=== PATIENT | male | born 1960 | race Caucasian/White ===

== ENCOUNTER → 2016-04-28 | Emergency (ER) | payer MEDICARE ==
--- NOTE | 2016-04-28 11:52 | ERRECORD ---
*[facility] EMERGENCY RECORD KNOWN ALLERGIES No recorded allergies CURRENT MEDICATIONS No recorded medications PROBLEM LIST No recorded problems DIAGNOSIS (11:45 KRLA) FINAL: PRIMARY: enterred in error. PRESCRIPTION No recorded prescriptions DISPOSITION (11:45 KRLA) PATIENT: Disposition Type: Entered in Error, Disposition: zEntered in Error, Patient left the department. Barrett: KRLA=CAROLYN Maurer, Lis &a-1R&a+25V*p+0X*[id number]*c202B*c15G*c2P*p-0X&a-25V&a+1R Name: Johnny Gutiérrez : 1960 M56 MedRec: [id number] AcctNum: [id number] Prepared: SunApr 28, 2016 11:50 by Interface Page 1 of 1 [facility]
--- NOTE | 2016-04-28 11:58 | PICIS ---
*[facility] EMERGENCY RECORD TRIAGE (11:44 KRLA) PATIENT: NAME: Johnny Gutiérrez, AGE: 56, GENDER: male, : Sun1960, TIME OF GREET: SunApr 28, 2016 09:53, PREFERRED LANGUAGE: Mongolian, RACE: WHITE, ETHNICITY: Not or , SSN: [id number], Zip Code: [facility], PHONE: , , , PERSON ID: [id number]. TRIAGE NOTES: entered in error. COMPLAINT: entered in error. ADMISSION: ADMISSION SOURCE: Home, TRANSPORT: Walk-in, BED: TRIAGE. PROVIDERS: TRIAGE NURSE: Lis Maurer RN. KNOWN ALLERGIES No recorded allergies CURRENT MEDICATIONS No recorded medications EVENTS TRANSFER: Triage to Emergency Triage. (SunApr 28, 2016 11:44 KRLA) Removed from Emergency Triage. (11:45 KRLA) PROBLEM LIST No recorded problems DIAGNOSIS (11:45 KRLA) FINAL: PRIMARY: enterred in error. DISPOSITION (11:45 KRLA) PATIENT: Disposition Type: Entered in Error, Disposition: zEntered in Error, Patient left the department. PRESCRIPTION No recorded prescriptions Barrett: ALTAGRACIA=CAROLYN Maurer, Lis &a-1R&a+25V*p+0X*[id number]*c202B*c15G*c2P*p-0X&a-25V&a+1R Name: Johnny Gutiérrez : 1960 M56 MedRec: [id number] AcctNum: [id number] Prepared: SunApr 28, 2016 11:56 by Interface Page 1 of 1 [facility]
== END ==
LOC: MADER/OP 09:52
DX: Z53.21 Procedure and treatment not carried out due to patient leaving prior to being seen by health care provider (principal)
CPT/HCPCS: 96372; G0463; 99201

== ENCOUNTER 2018-09-13 08:38 | Outpatient (CLI) | payer MEDICARE | END 2018-09-13 08:39 | disposition home or self-care (01) | LOC: MADER/OP 08:38 | PROVIDERS: ATTEND Psychiatry & Neurology Psychiatry | DX: F25.9 Schizoaffective disorder, unspecified (principal) | CPT/HCPCS: 96372 ==

== ENCOUNTER → 2019-04-29 | Day surgery (SDC) | payer MEDICARE | LOC: MADER/OP 13:22 | PROVIDERS: ATTEND Psychiatry & Neurology Psychiatry | DX: F25.9 Schizoaffective disorder, unspecified (principal) | CPT/HCPCS: 90853; 96372 ==

== ENCOUNTER 2019-05-19 13:23 | Emergency (ER) | payer MEDICARE ==
[2019-05-19] MEDS ORDERED: predniSONE 20 MG TAB ONE (15:56)
== END 2019-05-19 15:55 | disposition home or self-care (01) ==
LOC: MADERS 13:23
DX: M54.16 Radiculopathy, lumbar region (principal); M19.90 Unspecified osteoarthritis, unspecified site; F20.9 Schizophrenia, unspecified; Z79.899 Other long term (current) drug therapy
CPT/HCPCS: 99283; J7512

== ENCOUNTER 2019-05-23 09:19 | Emergency (ER) | payer MEDICARE ==
[2019-05-23] MEDS ORDERED: Diazepam 5 MG TAB ONE (09:49)
[2019-05-23] MEDS ORDERED: Cyclobenzaprine 10 MG TAB ONE (09:49)
== END 2019-05-23 10:22 | disposition home or self-care (01) ==
LOC: MADERS 09:19
DX: M54.42 Lumbago with sciatica, left side (principal); M19.90 Unspecified osteoarthritis, unspecified site; F20.9 Schizophrenia, unspecified; Z79.899 Other long term (current) drug therapy
CPT/HCPCS: 99283

== ENCOUNTER → 2019-08-14 | Day surgery (SDC) | payer MEDICARE | LOC: MADER/OP 16:29 | PROVIDERS: ATTEND Psychiatry & Neurology Psychiatry | DX: F25.9 Schizoaffective disorder, unspecified (principal) | CPT/HCPCS: 96372 ==

== ENCOUNTER 2021-04-24 02:58 | Emergency (ER) | payer MEDICARE ==
[2021-04-24] MEDS ORDERED: Lorazepam 1 MG TAB ONE (03:22)
== END 2021-04-24 03:49 | disposition home or self-care (01) ==
LOC: MADERS 02:58
DX: F41.9 Anxiety disorder, unspecified (principal); F13.239 Sedative, hypnotic or anxiolytic dependence with withdrawal, unspecified; R06.02 Shortness of breath; M19.90 Unspecified osteoarthritis, unspecified site; F17.210 Nicotine dependence, cigarettes, uncomplicated
CPT/HCPCS: 93005; 94760

== ENCOUNTER 2021-07-02 01:19 | Emergency (ER) | payer MEDICARE ==
[2021-07-02] MEDS ORDERED: Iopamidol 370 76% 100 ML VIAL FS ONE (01:20)
[2021-07-02] MEDS ORDERED: Sodium Chloride 0.9% 1,000 ML ONE (02:07)
[2021-07-02] MEDS ORDERED: Ondansetron PF 4 MG/2 ML Vial ONE (02:07)
[2021-07-02] MEDS ORDERED: Pantoprazole 40 MG VIAL ONE (02:07)
[2021-07-02 02:16] LABS: #Basophils 0.4 thou/uL (0.0-0.2); #Eosinphils 0.4 thou/uL (0.0-0.7); #Lymphocytes 2.7 thou/uL (1.20-3.40); #Monocytes 0.9 thou/uL (0.11-0.59); #Neutrophils 11.5 thou/uL (1.40-6.50); %Basophils 2.3 % (0.0-1.0); %Eosinophils 2.4 % (0.0-10.0); %Lymphocytes 17.2 % (21.0-51.0); %Monocytes 5.4 % (0.0-10.0); %Neutrophils 72.6 % (42.0-75.0); Hemoglobin 15.7 g/dL (14.0-18.0); Mean Corpuscular Volume 84.5 fL (78.0-98.0); Mean Platelet Volume 6.4 fL (7.4-10.4); Platelet Count 368 thou/uL (130-400); RBC Distribution Width 13.5 % (11.5-14.5); Red Blood Cell (RBC) Count 5.82 mill/uL (4.70-6.10); White Blood Cell (WBC) Count 15.8 thou/uL (4.8-10.8)
[2021-07-02 02:31] LABS: ALT (SGPT) 9 U/L (8-55); AST (SGOT) 11 U/L (5-34); Albumin 4.1 g/dL (3.5-5.0); Alkaline Phosphatase 170 U/L (40-110); Anion Gap 15 mmol/L (10-20); BUN (Urea Nitrogen) 15 mg/dL (8.4-25.7); Bilirubin, Total 0.3 mg/dL (0.2-1.2); CK (CPK) 68 U/L (30-200); CRP (Inflammatory) Less than 0.50 mg/dL (= or < 0.5); Calc. Creatinine Clearance 0 mL/min (70-130); Calcium 9.3 mg/dL (7.8-10.44); Carbon Dioxide 21 mmol/L (22-29); Chloride 106 mmol/L (98-107); Globulin 3.5 g/dL (2.4-3.5); Glucose 109 mg/dL (70-105); Potassium 4.2 mmol/L (3.5-5.1); Protein, Total 7.6 g/dL (6.0-8.3); Sodium 138 mmol/L (136-145)
[2021-07-02 04:16] LABS: Bilirubin Negative (Negative); Blood, Urine Negative (Negative); Clarity Clear (Clear); Glucose, Urine (Dipstick) Negative (Negative); Ketone, Urine Negative (Negative); Leukocyte Negative (Negative); Nitrite Negative (Negative); Protein, Urine (Dipstick) Negative (Neg-Trace); Urobilinogen 0.2 mg/dL (Less than 2)
[2021-07-02] MEDS ORDERED: Piperacillin/Tazobactam 4.5 GM VIAL ONE (04:22)
[2021-07-02 06:02] LABS: SARS-CoV-2 NAA Rapid Test Not Detected (NotDetected)
== END 2021-07-02 05:55 | disposition short-term general hospital (02) ==
LOC: MADERS 01:19
DX: K56.609 Unspecified intestinal obstruction, unspecified as to partial versus complete obstruction (principal); D72.829 Elevated white blood cell count, unspecified; M19.90 Unspecified osteoarthritis, unspecified site; F17.210 Nicotine dependence, cigarettes, uncomplicated; Z20.822 Contact with and (suspected) exposure to COVID-19; Z79.899 Other long term (current) drug therapy
CPT/HCPCS: 71045; 74177; 80053; 81003; 82150; 82550; 83605; 83690; 84484; 85025; 86140; 93005; 96365; 96375; 99285; U0002; 36415; C9113; J2405; J2543; J7050; J7620; Q9967

== ENCOUNTER 2022-12-23 14:23 | Emergency (ER) | payer OTHER, MEDICARE ==
[2022-12-23] MEDS ORDERED: Boostrix 0.5 ML (Tdap) VIAL (>/=7 yrs of age) ONE (14:43)
== END 2022-12-23 15:12 | disposition home or self-care (01) ==
LOC: MADERS 14:23
DX: S61.452A Open bite of left hand, initial encounter (principal); F17.210 Nicotine dependence, cigarettes, uncomplicated; W54.0XXA Bitten by dog, initial encounter
CPT/HCPCS: 90471; 90715

== ENCOUNTER 2023-06-03 06:08 | Emergency (ER) | payer MEDICARE, OTHER ==
[2023-06-03] MEDS ORDERED: Aspirin Chewable 81 MG TAB ONE (06:37)
[2023-06-03 06:43] LABS: Eosinophils 2 % (0-10); Hematocrit 46.2 % (42.0-52.0); Hemoglobin 14.9 g/dL (14.0-18.0); Lymphocytes 22 % (21-51); MDiff Complete? YES; Mean Corpuscular HGB CONC 32.2 g/dL (32.0-36.0); Mean Corpuscular Hemoglobin 28.1 pg (27.0-31.0); Mean Corpuscular Volume 87.4 fl (78.0-98.0); Mean Platelet Volume 7.8 fL (7.4-10.4); Monocytes 6 % (0-10); Neutrophil 70 % (42-75); Platelet Count 331 10x3/uL (130-400); RBC Distribution Width 14.4 % (11.5-14.5); Red Blood Cell (RBC) Count 5.29 mill/uL (4.70-6.10); White Blood Cell (WBC) Count 10.3 10x3/uL (4.8-10.8)
[2023-06-03 06:57] LABS: Anion Gap 16 mmol/L (10-20); BUN (Urea Nitrogen) 13 mg/dL (8.4-25.7); Calc. Creatinine Clearance 0 mL/min (70-130); Calcium 8.1 mg/dL (7.8-10.44); Carbon Dioxide 21 mmol/L (23-31); Chloride 106 mmol/L (98-107); Estimated GFR 99; Glucose 105 mg/dL (80-115); Sodium 138 mmol/L (136-145)
[2023-06-03 07:04] LABS: Troponin I 0.011 ng/mL (< 0.028)
[2023-06-03 07:09] LABS: Potassium 4.1 mmol/L (3.5-5.1)
== END 2023-06-03 19:22 | disposition home or self-care (01) ==
LOC: MADERS 06:08
DX: R07.89 Other chest pain (principal); F41.9 Anxiety disorder, unspecified; F17.210 Nicotine dependence, cigarettes, uncomplicated
CPT/HCPCS: 71045; 80048; 83880; 84484; 85025; 85379; 93005

== ENCOUNTER 2023-07-01 16:43 | Emergency (ER) | payer OTHER ==
[2023-07-01] MEDS ORDERED: Ipratropium/Albuterol 3 ML NEB ONE (18:03)
[2023-07-01 18:10] LABS: #Basophils 0.1 thou/uL (0.0-0.2); #Eosinphils 0.3 thou/uL (0.0-0.7); #Lymphocytes 1.9 thou/uL (1.20-3.40); #Monocytes 0.6 thou/uL (0.11-0.59); %Basophils 0.8 % (0.0-1.0); %Eosinophils 2.2 % (0.0-10.0); %Lymphocytes 16.3 % (21.0-51.0); %Monocytes 4.7 % (0.0-10.0); Hematocrit 50.5 % (42.0-52.0); Hemoglobin 15.7 g/dL (14.0-18.0); Mean Corpuscular HGB CONC 31.1 g/dL (32.0-36.0); Mean Corpuscular Volume 86.8 fl (78.0-98.0); Mean Platelet Volume 7.2 fL (7.4-10.4); Platelet Count 400 10x3/uL (130-400); RBC Distribution Width 13.9 % (11.5-14.5); Red Blood Cell (RBC) Count 5.82 mill/uL (4.70-6.10); White Blood Cell (WBC) Count 11.8 10x3/uL (4.8-10.8)
[2023-07-01 18:24] LABS: ALT (SGPT) 8 U/L (8-55); AST (SGOT) 7 U/L (5-34); Albumin 3.6 g/dL (3.4-4.8); Alkaline Phosphatase 129 U/L (40-110); Anion Gap 16 mmol/L (10-20); BUN (Urea Nitrogen) 6 mg/dL (8.4-25.7); Bilirubin, Total 0.3 mg/dL (0.2-1.2); Calc. Creatinine Clearance 0 mL/min (70-130); Calcium 9.2 mg/dL (7.8-10.44); Carbon Dioxide 30 mmol/L (23-31); Chloride 100 mmol/L (98-107); Estimated GFR 100; Glucose 99 mg/dL (80-115); Potassium 4.1 mmol/L (3.5-5.1); Protein, Total 7.6 g/dL (5.8-8.1); Sodium 142 mmol/L (136-145)
[2023-07-01 18:27] LABS: Troponin I 0.011 ng/mL (< 0.028)
[2023-07-01 19:35] LABS: Influenza A by NAA Not Detected (NotDetected); Influenza B by NAA Not Detected (NotDetected); SARS-CoV-2 NAA Rapid Test Not Detected (NotDetected)
[2023-07-01] MEDS ORDERED: predniSONE 20 MG TAB ONE (20:19)
[2023-07-01] MEDS ORDERED: Doxycycline 100 MG CAP ONE (20:20)
== END 2023-07-01 20:40 | disposition home or self-care (01) ==
LOC: MADERS 16:43
DX: J22 Unspecified acute lower respiratory infection (principal); G62.9 Polyneuropathy, unspecified; F17.210 Nicotine dependence, cigarettes, uncomplicated
CPT/HCPCS: 0240U; 71046; 80053; 83880; 84484; 85025; 93005; J7512; J7620

== ENCOUNTER 2025-01-26 09:42 | Outpatient (CLI) | payer MEDICARE ==
[2025-01-26 10:02] LABS: #Basophils 0.2 thou/uL (0.0-0.2); #Eosinophils 0.3 thou/uL (0.0-0.7); #Lymphocytes 1.7 thou/uL (1.20-3.40); #Monocytes 0.5 thou/uL (0.11-0.59); #Neutrophils 5.8 thou/uL (1.40-6.50); %Basophils 2.0 % (0.0-1.0); %Eosinophils 3.6 % (0.0-10.0); %Lymphocytes 20.2 % (21.0-51.0); %Monocytes 5.9 % (0.0-10.0); %Neutrophils 68.4 % (42.0-75.0); Hematocrit 47.3 % (42.0-52.0); Hemoglobin 14.9 g/dL (14.0-18.0); Mean Corpuscular Hemoglobin 27.2 pg (27.0-31.0); Mean Corpuscular Volume 86.5 fl (78.0-98.0); Platelet Count 346 10x3/uL (130-400); Red Blood Cell (RBC) Count 5.47 mill/uL (4.70-6.10); White Blood Cell (WBC) Count 8.5 10x3/uL (4.8-10.8)
[2025-01-26 10:13] LABS: ALT (SGPT) 8 U/L (Less than 45); AST (SGOT) 15 U/L (11-34); Albumin 3.6 g/dL (3.1-4.5); Alkaline Phosphatase 145 U/L (40-110); Anion Gap 14 mmol/L (10-20); BUN (Urea Nitrogen) 8 mg/dL (8.4-25.7); Bilirubin, Direct 0.2 mg/dL (0.1-0.3); Bilirubin, Total 0.4 mg/dL (0.3-1.2); Calc. Creatinine Clearance 0 mL/min (70-130); Calcium 8.8 mg/dL (7.8-10.44); Carbon Dioxide 25 mmol/L (23-31); Cardiac Risk 3.2 (Less than 4.5); Chloride 106 mmol/L (98-107); Cholesterol 136 mg/dl (< 200 Desired); Glucose 106 mg/dL (80-115); HDL Cholesterol 42 mg/dL (>60 Neg Risk); LDL Cholesterol, Calculated 79 mg/dL; Potassium 4.3 mmol/L (3.5-5.1); Sodium 141 mmol/L (136-145); Triglycerides 77 mg/dL (Less than 150)
[2025-01-26 16:28] LABS: Iron 65 ug/dL (65-175); Iron Binding Capacity, Total 403 mcg/dL (261-462)
[2025-01-26 16:50] LABS: PSA-Symptomatic (DIAGNOSTIC) 1.863 ng/mL (0-4.0); Vitamin D, 25 Hydroxy 24.3 ng/ml (> 30.0)
[2025-01-26 17:27] LABS: Ferritin 28.32 ng/mL (22-322); Free T4 (Free Thyroxine) 0.86 ng/dL (0.70-1.48); Vitamin B12 293.0 pg/mL (211-911)
== END 2025-01-26 09:43 | disposition home or self-care (01) ==
LOC: MADLAB 09:42
PROVIDERS: ATTEND Internal Medicine
DX: Z12.5 Encounter for screening for malignant neoplasm of prostate (principal); I10 Essential (primary) hypertension; E78.1 Pure hyperglyceridemia; D64.9 Anemia, unspecified; R79.89 Other specified abnormal findings of blood chemistry; E11.9 Type 2 diabetes mellitus without complications; E03.9 Hypothyroidism, unspecified; D51.9 Vitamin B12 deficiency anemia, unspecified; E55.9 Vitamin D deficiency, unspecified; E61.1 Iron deficiency
CPT/HCPCS: 36415; 80048; 80061; 80076; 82306; 82607; 82728; 83036; 83540; 83550; 84153; 84439; 84443; 85025